=== PATIENT | male | born 2000 | race Caucasian/White ===

== ENCOUNTER 2022-10-16 16:04 | Emergency (ER) | payer OTHER ==
[2022-10-16] MEDS ORDERED: SODIUM CHLORIDE 0.9% 1,000 ML IV STA (18:38)
--- NOTE | 2022-10-16 18:41 | ED Physician Documentation ---
History of Present Illness - Stated complaint Stated Complaint: DIZZY - Chief complaint Chief Complaint: Neuro - Additonal information Additional information: 22-year-old male presents emergency department for evaluation of 3 episodes of near syncope. Reports that first episode was about 1 week ago when he was simply standing up to go throw something away. He felt suddenly lightheaded and thought he might pass out. He did have some palpitations. He described it as a very intense sensation. He had another smaller similar episode midweek that also occurred with positioning changes. However he denies a sensation of vertigo. Today he was running and again began to have a sensation of feeling lightheaded. He is very active and physically fit and this is a very new symptom for him. Patient denies chest pain or shortness of air. No abdominal pain, nausea vomiting or diarrhea. Denies any pertinent past medical history or hospitalizations. Takes no prescribed medications. Denies tobacco use but does socially drink. Review of Systems Constitutional: reports: Reviewed and negative Throat: reports: Reviewed and negative Cardiac: reports: Palpitations. denies: Chest pain / pressure Respiratory: denies: Dyspnea, Cough, Hemoptysis, Wheezing, Reviewed and negative GI: reports: Reviewed and negative : reports: Reviewed and negative Neurologic: reports: Generalized weakness, Near syncope. denies: Syncope, Seizure, Headache, Head injury Psychiatric: reports: Reviewed and negative PD PAST MEDICAL HISTORY - Present Medications Home Medications: Ambulatory Orders Medication Instructions Recorded Confirmed No Known Home Medications 10/16/22 10/16/22 - Allergies Allergies/Adverse Reactions: Allergies Allergy/AdvReac Type Severity Reaction Status Date / Time No Known Drug Allergies Allergy Verified 10/16/22 16:20 PD ED PE NORMAL - General General: Alert and oriented X 3, No acute distress - HEENT HEENT: PERRL - Cardiac Cardiac: RRR, No murmur, Strong equal pulses - Respiratory Respiratory: No respiratory distress, Clear bilaterally - Back Back: No CVA TTP - Derm Derm: Normal color, Warm and dry - Extremities Extremities: No deformity - Neuro Neuro: Alert and oriented X 3 Eye Opening: Spontaneous Motor: Obeys Commands Verbal: Oriented GCS Score: 15 Results - Vitals Vitals: Vital Signs - 24 hr 10/16/22 10/16/22 10/16/22 16:17 19:26 19:48 Temperature 36.4 C L Heart Rate 94 74 Heart Rate [ 82 Sitting] Heart Rate [ 86 Standing] Heart Rate [ 92 Supine] Respiratory 20 16 Rate Blood Pressure 133/90 H 148/95 H Blood Pressure 148/88 H [Sitting] Blood Pressure 158/97 H [Standing] Blood Pressure 147/94 H [Supine] O2 Saturation 97 100 Oxygen O2 Source Room air - EKG (time done) 1916 EKG releavant findings:: EKG personally interpreted by author of this note. Relevant findings are: Rate: Rate (enter#) (81) Rhythm: NSR [place]: Normal Intervals: Normal TX. No: Prolonged QT QRS: Normal Ischemia: Normal ST segments Compare to prior EKG: Old EKG unavailable Computer interpretation: Agree with computer - Labs Labs: Laboratory Tests 10/16/22 10/16/22 19:31 19:31 WBC 9.5 RBC 5.21 Hgb 15.8 Hct 46.6 MCV 89.4 MCH 30.3 MCHC 33.9 RDW 12.0 Plt Count 275 MPV 10.0 Neut # (Auto) 7.0 H Lymph # (Auto) 1.9 [place] # (Auto) 0.5 Eos # (Auto) 0.1 Baso # (Auto) 0.0 Absolute Nucleated RBC 0.00 Nucleated RBC % 0.0 Sodium 137 Potassium 4.2 Chloride 105 Carbon Dioxide 27 Anion Gap 5.0 L BUN 18 Creatinine 1.1 Estimated GFR (MDRD) 82 L Glucose 86 Calcium 9.5 Total Bilirubin 1.0 AST 26 ALT 47 Alkaline Phosphatase 57 Total Protein 7.1 Albumin 4.7 Globulin 2.4 Albumin/Globulin Ratio 2.0 Lipase 19 - Rads (name of study) cxr Relevant Findings:: Final report received (No acute cardiopulmonary process.) PD Medical Decision Making - ED course Complexity details: reviewed results, re-evaluated patient, considered differential, d/w patient ED course: 22-year-old male presents emergency department for evaluation of 3 episodes of near syncope this week. They have typically occurred with changing positions but also occurred after running today. He is having no chest pain or shortness of air. No nausea or vomiting. No abdominal pain. Denies any pertinent past medical history or any coronary or pulmonary history. Here in the emergency department a chest x-ray was obtained and showed no findings suggest pneumonia, pneumothorax pleural effusion. A twelve-lead EKG is interpreted by myself was entirely nonischemic and showed normal sinus rhythm. I did obtain CBC, electrolytes which showed no acute derangement. His orthostatic vital signs were normal today in the emergency department. While here on the monitor he has had no runs of ectopy or abnormal arrhythmia. At this time the etiology of the near syncope is not clear though I am advising him close follow-up with [facility]. The usual emergent return precautions for worsening symptoms such as fevers chest pain shortness of air or actual syncopal episodes was discussed. Departure - Departure Disposition: 01 Home, Self Care Clinical Impression: Near syncope Condition: Stable Record reviewed to determine appropriate education?: Yes Instructions: ED Near Syncope Unkn Comments: Harman you are seen today in the emergency department for 3 episodes of near fainting or syncope over the last week. 2 of them seem to have occurred with position changes but a third occurred after running. Here in the emergency department your chest x-ray, EKG and labs were all entirely normal with no abnormal findings noted. We did check your orthostatic vital signs and those were also normal. It is not clear what is causing the symptoms but I would recommend very close follow-up with [facility]. You may benefit from referral for a Holter monitor where they can monitor your heart rate over a longer period of time. Return immediately to the ER if you develop chest pain especially with exercise, have fainting episodes, develop severe shortness of air or any other emergent concerns. Forms: PCP List
--- NOTE | 2022-10-16 19:09 | XRAY Report ---
PROCEDURE: Chest 1 View X-Ray INDICATIONS: Chest Pain TECHNIQUE: One view of the chest was acquired. COMPARISON: None. FINDINGS: Surgical changes and devices: None. Lungs and pleura: No pleural effusions or pneumothorax. Lungs are clear. Mediastinum: Mediastinal contours appear normal. Heart size is normal. Bones and chest wall: No suspicious bony lesions. Overlying soft tissues appear unremarkable. IMPRESSION: No acute cardiopulmonary process. Reviewed by: Parish Rodriguez MD on 10/16/2022 7:08 PM PDT Approved by: Parish Rodriguez MD on 10/16/2022 7:08 PM PDT Station ID: [id number]
[2022-10-16 19:37] LABS: BASOPHILS % (AUTO) 0.3 %; EOSINOPHILS # (AUTO) 0.1 10^3/uL (0.0-0.7); EOSINOPHILS % (AUTO) 0.5 %; HCT - HEMATOCRIT 46.6 % (42.0-52.0); HGB - HEMOGLOBIN 15.8 g/dL (14.0-18.0); LYMPHOCYTES # (AUTO) 1.9 10^3/uL (1.5-3.5); LYMPHOCYTES % (AUTO) 19.5 %; MEAN CORPUSCULAR HEMOGLOBIN 30.3 pg (27.0-31.0); MEAN CORPUSCULAR HGB CONC 33.9 g/dL (32.0-36.0); MEAN CORPUSCULAR VOLUME 89.4 fL (80.0-94.0); MONOCYTES # (AUTO) 0.5 10^3/uL (0.0-1.0); MONOCYTES % (AUTO) 5.3 %; NEUTROPHILS % (AUTO) 74.2 %; PLT - PLATELET COUNT 275 10^3/uL (130-450); RED BLOOD COUNT 5.21 10^6/uL (4.70-6.10); WHITE BLOOD COUNT 9.5 x10^3/uL (4.8-10.8)
[2022-10-16 19:49] LABS: ALBUMIN 4.7 g/dL (3.2-5.5); CALCIUM 9.5 mg/dL (8.5-10.3); CREATININE 1.1 mg/dL (0.6-1.3); POTASSIUM 4.2 mmol/L (3.5-4.5); TOTAL PROTEIN 7.1 g/dL (6.4-8.9)
[2022-10-16 20:26] VITALS: BP 141/90; O2SAT 98
== END 2022-10-16 20:19 | disposition home or self-care (01) ==
LOC: ED 16:04
DX: R55 Syncope and collapse (principal)
CPT/HCPCS: 36415; 80053; 83690; 85025; 93005; 99283; 99284

== ENCOUNTER 2023-02-23 09:08 | Emergency (ER) | payer OTHER ==
[2023-02-23] MEDS ORDERED: SODIUM CHLORIDE 0.9% 1,000 ML IV STA (09:43)
--- NOTE | 2023-02-23 09:56 | ED Physician Documentation ---
History of Present Illness - Stated complaint Stated Complaint: DIZZINESS,FAINT - Chief complaint Chief Complaint: Abd Pain - History obtained from History obtained from: Patient - Additonal information Additional information: Patient is a 22-year-old male with no significant prior medical history, active [employer] presenting for evaluation of a near syncopal episode that occurred this morning. Patient states that he was seated at the toilet having a bowel movement when he started feeling warm, tunnel vision, blurriness, tingling in his arms and legs. He states he was able to maintain Consciousness and did not actually pass out. He states that the numbness and tingling lasted about 5 minutes. 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 He states that recently he had another episode where he was seated and had a near syncopal episode. He has been feeling intermittently dizziness and lightheadedness. 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 He has not had diarrhea or vomiting. He was having some abdominal pain in the lower abdomen prior to having his bowel movement this morning. No cough, congestion. No chest pain or shortness of air. No family history of early coronary artery disease. He is awaiting a follow-up appointment [facility] [place] [facility]. Review of Systems Constitutional: denies: Fever Cardiac: denies: Chest pain / pressure Respiratory: denies: Dyspnea GI: denies: Vomiting, Diarrhea Neurologic: denies: Syncope PD PAST MEDICAL HISTORY - Past Medical History Past Medical History: No - Past Surgical History Past Surgical History: No - Present Medications Home Medications: Ambulatory Orders Medication Instructions Recorded Confirmed No Known Home Medications 10/16/22 02/23/23 - Allergies Allergies/Adverse Reactions: Allergies Allergy/AdvReac Type Severity Reaction Status Date / Time No Known Drug Allergies Allergy Verified 10/16/22 16:20 - Social History Does the pt smoke?: No Smoking Status: Never smoker Does the pt drink ETOH?: Yes Does the pt have substance abuse?: No - Immunizations Immunizations are current?: Yes PD ED PE NORMAL - General General: Alert and oriented X 3, No acute distress, Well developed/nourished - HEENT HEENT: Atraumatic, Moist mucous membranes, Pharynx benign - Neck Neck: Supple, no meningeal sign - Cardiac Cardiac: RRR, Strong equal pulses - Respiratory Respiratory: No respiratory distress, Clear bilaterally - Abdomen Abdomen: Normal bowel sounds, Soft, Non tender, Non distended - Derm Derm: Warm and dry - Extremities Extremities: No calf tenderness / cord - Neuro Neuro: Alert and oriented X 3, No motor deficit, Normal speech Results - Vitals Vitals: Oxygen O2 Source Room air - EKG (time done) 0929 EKG releavant findings:: EKG personally interpreted by author of this note. Relevant findings are: Rate 105, sinus tachycardia, no STEMI, QTc 390, - Labs Labs: Laboratory Tests 02/23/23 02/23/23 02/23/23 09:50 09:50 09:50 WBC 6.6 RBC 5.45 Hgb 16.0 Hct 49.1 MCV 90.1 MCH 29.4 MCHC 32.6 RDW 12.2 Plt Count 263 MPV 9.9 Neut # (Auto) 5.1 Lymph # (Auto) 0.8 L [place] # (Auto) 0.6 Eos # (Auto) 0.1 Baso # (Auto) 0.0 Absolute Nucleated RBC 0.00 Nucleated RBC % 0.0 D-Dimer 260.5 H Sodium 138 Potassium 4.0 Chloride 103 Carbon Dioxide 27 Anion Gap 8.0 BUN 12 Creatinine 1.0 Estimated GFR (MDRD) 92 Glucose 149 H Calcium 9.1 Total Bilirubin 0.7 AST 18 ALT 25 Alkaline Phosphatase 54 Total Protein 6.9 Albumin 4.3 Globulin 2.6 Albumin/Globulin Ratio 1.7 Lipase 24 Nasal Adenovirus (PCR) Nasal B. parapertussis DNA (PCR) Nasal Coronavir 229E PCR Nasal Coronavir HKU1 PCR Nasal Coronavir NL63 PCR Nasal Coronavir OC43 PCR Nasal Enterovir/Rhinovir PCR Nasal Influenza A H3 PCR Nasal Influenza B PCR Nasal Parainfluen 1 PCR Nasal Parainfluen 2 PCR Nasal Parainfluen 3 PCR Nasal Parainfluen 4 PCR Nasal RSV (PCR) Nasal B.pertussis DNA PCR Nasal C.pneumoniae (PCR) [place]de Human Metapneumo PCR Nasal M.pneumoniae (PCR) Nasal SARS-CoV-2 (PCR) 02/23/23 10:16 WBC RBC Hgb Hct MCV MCH MCHC RDW Plt Count MPV Neut # (Auto) Lymph # (Auto) [place] # (Auto) Eos # (Auto) Baso # (Auto) Absolute Nucleated RBC Nucleated RBC % D-Dimer Sodium Potassium Chloride Carbon Dioxide Anion Gap BUN Creatinine Estimated GFR (MDRD) Glucose Calcium Total Bilirubin AST ALT Alkaline Phosphatase Total Protein Albumin Globulin Albumin/Globulin Ratio Lipase Nasal Adenovirus (PCR) NOT DETECTED Nasal B. parapertussis DNA (PCR) NOT DETECTED Nasal Coronavir 229E PCR NOT DETECTED Nasal Coronavir HKU1 PCR NOT DETECTED Nasal Coronavir NL63 PCR NOT DETECTED Nasal Coronavir OC43 PCR NOT DETECTED Nasal Enterovir/Rhinovir PCR NOT DETECTED Nasal Influenza A H3 PCR DETECTED A Nasal Influenza B PCR NOT DETECTED Nasal Parainfluen 1 PCR NOT DETECTED Nasal Parainfluen 2 PCR NOT DETECTED Nasal Parainfluen 3 PCR NOT DETECTED Nasal Parainfluen 4 PCR NOT DETECTED Nasal RSV (PCR) NOT DETECTED Nasal B.pertussis DNA PCR NOT DETECTED Nasal C.pneumoniae (PCR) NOT DETECTED [place]de Human Metapneumo PCR NOT DETECTED Nasal M.pneumoniae (PCR) NOT DETECTED Nasal SARS-CoV-2 (PCR) NOT DETECTED PD Medical Decision Making - ED course Complexity details: reviewed results, re-evaluated patient, d/w patient, d/w family ED course: Pt with near syncopal episode this morning while on toilet. Slight tachycardia but otherwise VSS. Normal neuro exam. EKG non ischemic. No CP and no risk factors to suggest ACS. Labs including CBC, chemistries, ddimer (given recent travel and tachycardia) reviewed. Mild elevation in d-dimer. CTA obtained which is negative for PE. Pt ambulatory here with negative orthostatics. No arrhythmia on monitor. Advised on need [facility] and likely needs an outpatient Holter monitor. Respiratory swab resulted positive for Flu A noted after pt discharge. Pt called and notified of positive flu result. Departure - Departure Disposition: 01 Home, Self Care Clinical Impression: Near syncope, Influenza A Condition: Stable Instructions: ED Near Syncope Unkn Follow-Up: TUNDE Carvajal [Provider Group] Comments: You were evaluated after almost fainting today. Your heart rate was elevated when you first arrived and we did obtain lab work including CBC, chemistries and a marker to check for blood clots in your body. The marker for blood clots called a D-dimer was slightly elevated so we did a CT scan which fortunately does not show signs of any blood clots in your body. There are also no other irregularity noted on the CT scan. Your heart rate has improved after fluids here. I would [facility] and you would likely benefit from a Holter monitor given your recent symptoms. Please continue to stay hydrated. Make sure you are taking your time when ambulating or changing positions. Return to the ER if you develop any new or worsening symptoms. Forms: PCP List Discharge Date/Time: 02/23/23 14:43
[2023-02-23 09:59] VITALS: O2SAT 97
[2023-02-23 10:14] LABS: BASOPHILS % (AUTO) 0.6 %; EOSINOPHILS # (AUTO) 0.1 10^3/uL (0.0-0.7); EOSINOPHILS % (AUTO) 0.9 %; HCT - HEMATOCRIT 49.1 % (42.0-52.0); LYMPHOCYTES # (AUTO) 0.8 10^3/uL (1.5-3.5); LYMPHOCYTES % (AUTO) 11.7 %; MEAN CORPUSCULAR HEMOGLOBIN 29.4 pg (27.0-31.0); MEAN CORPUSCULAR HGB CONC 32.6 g/dL (32.0-36.0); MEAN CORPUSCULAR VOLUME 90.1 fL (80.0-94.0); MEAN PLATELET VOLUME 9.9 fL (7.4-11.4); MONOCYTES # (AUTO) 0.6 10^3/uL (0.0-1.0); MONOCYTES % (AUTO) 8.4 %; NEUTROPHILS # (AUTO) 5.1 10^3/uL (1.5-6.6); NEUTROPHILS % (AUTO) 78.1 %; PLT - PLATELET COUNT 263 10^3/uL (130-450); RED BLOOD COUNT 5.45 10^6/uL (4.70-6.10); RED CELL DISTRIBUTION WIDTH 12.2 % (12.0-15.0); WHITE BLOOD COUNT 6.6 x10^3/uL (4.8-10.8)
[2023-02-23 10:27] LABS: ALBUMIN 4.3 g/dL (3.2-5.5); ALBUMIN/GLOBULIN RATIO 1.7 (1.0-2.2); BILIRUBIN,TOTAL 0.7 mg/dL (0.2-1.0); CALCIUM 9.1 mg/dL (8.5-10.3); TOTAL PROTEIN 6.9 g/dL (6.4-8.9)
[2023-02-23 11:25] LABS: B. PARAPERTUSSIS- RESP PCR PAN NOT DETECTED; B. PERTUSSIS- RESP PCR PANEL NOT DETECTED; C. PNEUMONIAE- RESP PCR PANEL NOT DETECTED; CORONAVIRUS 229E-RESP PCR NOT DETECTED; CORONAVIRUS HKU1-RESP PCR NOT DETECTED; CORONAVIRUS NL63-RESP PCR NOT DETECTED; CORONAVIRUS OC43-RESP PCR NOT DETECTED; HUMAN METAPNEUMOVIRUS NOT DETECTED; INFLUENZA A H3- RESP PCR PANEL DETECTED; INFLUENZA B - RESP PCR PANEL NOT DETECTED; M. PNEUMONIAE- RESP PCR PANEL NOT DETECTED; PARAINFLUENZA VIRUS 1 NOT DETECTED; PARAINFLUENZA VIRUS 2 NOT DETECTED; PARAINFLUENZA VIRUS 3 NOT DETECTED; PARAINFLUENZA VIRUS 4 NOT DETECTED; RHINOVIRUS/ENTEROVIRUS NOT DETECTED; RSV- RESP PCR PANEL NOT DETECTED; SARS-CoV-2 -RESP PCR PANEL NOT DETECTED
[2023-02-23 12:22] VITALS: BP 131/74
[2023-02-23] MEDS ORDERED: iohexoL-300 100 ML VIAL IVP ONE (13:31)
--- NOTE | 2023-02-23 14:22 | CT Report ---
PROCEDURE: ANGIO CHEST W/WO INDICATIONS: PE study/near syncope/tachycardia/recent travel CONTRAST: 80mL Omni 300 TECHNIQUE: After the administration of intravenous contrast, 2 mm axial images were acquired from the pulmonary apices to the posterior costophrenic angles during the arterial phase. In addition, 1 mm lung kernel and 5 mm soft tissue kernel reconstructions were performed. 3-dimensional coronal oblique maximum int ensity projection (MIP) reformats, 8 mm axial MIP, and 5 mm coronal and sagittal MPR reformats were t hen performed through the thorax. For radiation dose reduction, the following was used: automated exp osure control, adjustment of mA and/or kV according to patient size. COMPARISON: None. FINDINGS: Image quality: Excellent. Large vessels: No filling defects within the opacified pulmonary arteries, accounting for motion and contrast timing. No evidence of acute aortic syndrome or aortic aneurysm. Lungs and pleura: No consolidation. No pleural effusions. No pneumothorax. No suspicious pulmonary n odules which require follow up. Mediastinum: Heart size is normal. No pericardial effusion. No large vessel abnormality. No mediastin al adenopathy by size criteria. Chest wall and lower neck: Thyroid is unremarkable. No axillary or supraclavicular adenopathy by size . Bones: No aggressive osseous abnormality. Upper Abdomen: Unremarkable. IMPRESSION: 1. No pulmonary emboli identified. 2. No acute pulmonary process. Reviewed by: Parish Rodriguez MD on 02/23/2023 2:21 PM PST Approved by: Parish Rodriguez MD on 02/23/2023 2:21 PM PST Station ID: [id number]
== END 2023-02-23 14:43 | disposition home or self-care (01) ==
LOC: ED 09:08
DX: J11.1 Influenza due to unidentified influenza virus with other respiratory manifestations (principal); R55 Syncope and collapse; Z11.52 Encounter for screening for COVID-19
CPT/HCPCS: 36415; 71275; 80053; 83690; 85025; 85379; 87633; 93005; 99283; 99284; Q9967